=== PATIENT | female | born 1965 | race Hispanic/Latino ===

== ENCOUNTER 2016-12-12 06:30 | Emergency (ER) | payer MEDICARE ==
[2016-12-12] MEDS ORDERED: Ketorolac Tromethamine 30 MG/ML VIAL ONE (06:46)
[2016-12-12 07:08] LABS: #Eosinphils 0.1 thou/uL (0.0-0.7); #Lymphocytes 1.4 thou/uL (1.20-3.40); #Monocytes 0.9 thou/uL (0.11-0.59); #Neutrophils 8.6 thou/uL (1.40-6.50); %Basophils 0.4 % (0.0-1.0); %Eosinophils 0.7 % (0.0-10.0); %Lymphocytes 12.7 % (21.0-51.0); %Monocytes 8.3 % (0.0-10.0); Hematocrit 33.8 % (36.0-47.0); Mean Platelet Volume 9.3 fL (7.4-10.4); Red Blood Cell (RBC) Count 4.33 mill/uL (4.20-5.40)
[2016-12-12 07:28] LABS: ALT (SGPT) 12 U/L (8-55); AST (SGOT) 17 U/L (5-34); Alkaline Phosphatase 84 U/L (40-150); Anion Gap 12 mmol/L (10-20); BUN (Urea Nitrogen) 14 mg/dL (9.8-20.1); Bilirubin, Total 0.4 mg/dL (0.2-1.2); Calc. Creatinine Clearance 0 mL/min (70-130); Calcium 9.4 mg/dL (7.8-10.44); Carbon Dioxide 25 mmol/L (22-29); Chloride 104 mmol/L (98-107); Estimated GFR-MDRD 75; Globulin 3.7 g/dL (2.4-3.5); Protein, Total 7.8 g/dL (6.0-8.3)
--- NOTE | 2016-12-12 07:55 | RAD ---
CHEST 1 VIEW ABDOMEN 2 VIEWS: Date: 12/12/16 HISTORY: Chest and abdomen pain. Fever. FINDINGS: Cardiac silhouette and pulmonary vasculature are unremarkable. Mediastinum is midline. There is no c onfluent air space consolidation or evidence of free subdiaphragmatic gas. Gas and stool overlie the colon and rectum. There are no differential air fluid levels or evidence of free subdiaphragmatic g as. Metallic clips overlie the gallbladder fossa. IMPRESSION: 1. Nonspecific bowel gas pattern. 2. Status post cholecystectomy. POS: [facility]
[2016-12-12 08:30] LABS: Bilirubin Negative (Negative); Blood, Urine Negative (Negative); Glucose, Urine (Dipstick) Negative (Negative); Ketone, Urine Negative (Negative); Nitrite Negative (Negative); Protein, Urine (Dipstick) Negative (Neg-Trace); Urobilinogen 0.2 mg/dL (0.2-1.0)
== END 2016-12-12 09:06 | disposition home or self-care (01) ==
LOC: ERS 06:30
DX: M54.5 Low back pain (principal); D50.9 Iron deficiency anemia, unspecified; F17.210 Nicotine dependence, cigarettes, uncomplicated; I10 Essential (primary) hypertension; K21.9 Gastro-esophageal reflux disease without esophagitis
CPT/HCPCS: 74022; 80053; 81003; 85025; 96374; J1885

== ENCOUNTER 2017-11-02 06:09 | Inpatient (IN) | payer MEDICARE ==
[2017-11-02] MEDS ORDERED: Bupivacaine HCl 0.5%/Epinephrine 1:200,000/PF 30 ml Vial ONE (06:36)
[2017-11-02] MEDS ORDERED: Thrombin 5000 UNITS/5 ML VIAL ONE (06:36)
[2017-11-02] MEDS ORDERED: Fentanyl 100 MCG/2 ML VIAL ONE ×2 (06:38→09:15)
[2017-11-02] MEDS ORDERED: CEFAZOLIN/Water 2 GM/20 ML SYRINGE ONE (06:41)
[2017-11-02] MEDS ORDERED: Midazolam HCl 2 mg/2 ml Vial ONE (07:06)
--- NOTE | 2017-11-02 08:24 | OP ---
DATE OF PROCEDURE: 11/02/2017 SURGEON: Faustino Merrill M.D. TERMINAL OPERATIONS MANAGER: Anthony Pimentel PA-C. INDICATION: Pain. DIAGNOSIS: Lumbar radiculopathy. PROCEDURE: Left L4-5 hemilaminectomy, medial facetectomy, and resection of synovial cyst. ANESTHESIA: General. TECHNIQUE: The patient was brought into the operating room and placed under general anesthesia. She was flipped from a supine to a prone position on the operating room table. A linear incision was planned over the L4-L5 segment. After prepping and draping and after an appropriate operative pause, the incision was created. The soft tissues were swept away from midline. A self- retaining retractor was placed in the wound for optimal exposure. Confirmed the appropriate level with C-arm fluoroscopy, a high-speed cutting drill bit as well as 2, 3 and 4 mm Kerrisons used to perform a laminectomy along the inferior aspect of L4 and the superior aspect of L5. Laminectomy was extended laterally to encompass the medial aspect of the facet joint. A synovial cyst was identified as was granular faucet material. There was also a pocket of milky fluid which could be consistent with entrapped steroid as part of her injection. It is conceivable it also represents purulent material. As such, it was sent for microbiologic analysis. After decompressing the L4-5 lateral recess and resecting the wall of the synovial cyst the wound was irrigated. Hemostasis was maintained throughout. The wound was then closed in anatomic layers and a pressure dressing was applied. There were no known procedural complications. JESSICA
[2017-11-02] MEDS ORDERED: Bisacodyl 10 MG SUPP PR PRN (08:29)
[2017-11-02] MEDS ORDERED: Acetaminophen 325 MG TAB PO PRN (08:29)
[2017-11-02] MEDS ORDERED: Mag-Al 1200 mg/1200 mg/30 ML UDCUP PO PRN (08:29)
[2017-11-02] MEDS ORDERED: traMADol HCl 50 MG TAB PO PRN ×3 (08:29→15:02)
[2017-11-02] MEDS ORDERED: diphenhydrAMINE 50 MG/ML VIAL IVP PRN (08:29)
[2017-11-02] MEDS ORDERED: Ondansetron HCl/PF 4 MG/2 ML Vial IVP PRN ×2 (08:29→08:49)
[2017-11-02] MEDS ORDERED: Morphine Sulfate 2 MG/ML SYRINGE SLOW IVP PRN (08:49)
[2017-11-02] MEDS ORDERED: Promethazine HCl 25 MG/ML VIAL IM PRN (08:49)
[2017-11-02] MEDS ORDERED: Promethazine HCl 25 MG/ML VIAL SLOW IVP PRN (08:49)
[2017-11-02] MEDS ORDERED: Meperidine HCl/PF 25 MG/ML VIAL SLOW IVP PRN (08:49)
[2017-11-02] MEDS ORDERED: HYDROmorphone 2 MG/ML VIAL SLOW IVP PRN (08:49)
[2017-11-02 10:56] VITALS: BMI 34.0
[2017-11-02] MEDS: Sodium Chloride 0.9% 1,000 ML IV SCH ×2 (11:01→20:24)
[2017-11-02] MEDS: CEFAZOLIN/Water 2 GM/20 ML SYRINGE SLOW IVP SCH ×2 (14:52→22:44)
[2017-11-02] MEDS: traMADol HCl 50 MG TAB PO PRN ×2 (15:05→22:44)
--- NOTE | 2017-11-02 15:57 | EKG ---
Test Reason : PREOP Blood Pressure : / mmHG Vent. Rate : 077 BPM Atrial Rate : 077 BPM P-R Int : 166 ms QRS Dur : 092 ms QT Int : 402 ms P-R-T Axes : 046 052 032 degrees QTc Int : 454 ms Normal sinus rhythm Normal ECG Confirmed by NEO THOMSON ([id number]) on 11/02/2017 3:57:24 PM Referred By: Jorge GARVEY Confirmed By:NEO THOMSON
[2017-11-03] MEDS: Cyclobenzaprine 10 MG TAB PO PRN ×2 (00:31→07:43)
[2017-11-03] MEDS: traMADol HCl 50 MG TAB PO PRN (07:43)
[2017-11-03] MEDS ORDERED: Amlodipine 10 MG TAB PO SCH (09:00)
[2017-11-03 11:16] VITALS: TEMP 98.5
[2017-11-03 11:39] VITALS: BP 155/96
== END 2017-11-03 13:40 | disposition home or self-care (01) | DRG 520 ==
LOC: SURG A 06:09 → EDSTATUS 14:33 → SURG A 11-03 10:43
PROVIDERS: ADMIT Neurological Surgery; ATTEND Neurological Surgery
PROC: 01NB0ZZ Release Lumbar Nerve, Open Approach (ICD-10-PCS; principal; 2017-11-02)
PROC: 0SB00ZZ Excision of Lumbar Vertebral Joint, Open Approach (ICD-10-PCS; 2017-11-02)
DX: M54.16 Radiculopathy, lumbar region (principal); M71.30 Other bursal cyst, unspecified site; Z85.42 Personal history of malignant neoplasm of other parts of uterus; I10 Essential (primary) hypertension; K21.9 Gastro-esophageal reflux disease without esophagitis; Z79.899 Other long term (current) drug therapy; Z88.8 Allergy status to other drugs, medicaments and biological substances
CPT/HCPCS: 76001; 87070; 87205; 93005; 93010; J0131; J0670; J2250; J3010

== ENCOUNTER 2020-01-30 12:11 | Emergency (ER) | payer MEDICARE ==
[2020-01-30 18:00] LABS: #Lymphocytes 1.3 thou/uL (1.20-3.40); #Monocytes 0.5 thou/uL (0.11-0.59); #Neutrophils 6.3 thou/uL (1.40-6.50); %Basophils 0.3 % (0.0-1.0); %Eosinophils 0.2 % (0.0-10.0); %Lymphocytes 15.9 % (21.0-51.0); %Monocytes 6.1 % (0.0-10.0); %Neutrophils 77.5 % (42.0-75.0); Hemoglobin 10.2 g/dL (12.0-16.0); Mean Corpuscular HGB CONC 32.3 g/dL (32.0-36.0); Mean Corpuscular Hemoglobin 27.7 pg (27.0-31.0); Mean Corpuscular Volume 85.7 fL (78.0-98.0); Mean Platelet Volume 6.9 fL (7.4-10.4); Platelet Count 363 thou/uL (130-400); RBC Distribution Width 14.1 % (11.5-14.5); White Blood Cell (WBC) Count 8.1 thou/uL (4.8-10.8)
[2020-01-30] MEDS ORDERED: Ketorolac Tromethamine 30 MG/ML VIAL ONE (18:11)
[2020-01-30 18:23] LABS: ALT (SGPT) 28 U/L (8-55); AST (SGOT) 24 U/L (5-34); Albumin 3.6 g/dL (3.5-5.0); Alkaline Phosphatase 108 U/L (40-110); Anion Gap 16 mmol/L (10-20); BUN (Urea Nitrogen) 14 mg/dL (9.8-20.1); Bilirubin, Total 0.2 mg/dL (0.2-1.2); Calc. Creatinine Clearance 0 mL/min (70-130); Calcium 9.3 mg/dL (7.8-10.44); Carbon Dioxide 22 mmol/L (22-29); Chloride 103 mmol/L (98-107); Estimated GFR-MDRD 73; Globulin 3.3 g/dL (2.4-3.5); Glucose 88 mg/dL (70-105); Potassium 3.8 mmol/L (3.5-5.1); Protein, Total 6.9 g/dL (6.0-8.3); Sodium 137 mmol/L (136-145)
== END 2020-01-30 19:03 | disposition home or self-care (01) ==
LOC: ERS 12:11
DX: M54.5 Low back pain (principal); D64.9 Anemia, unspecified; K21.9 Gastro-esophageal reflux disease without esophagitis; D50.9 Iron deficiency anemia, unspecified; F17.210 Nicotine dependence, cigarettes, uncomplicated
CPT/HCPCS: 36415; 80053; 85025; 96372; 99283; J1885

== ENCOUNTER 2022-09-08 21:20 | Day surgery (SDC) | payer MEDICARE ==
[2022-09-08 22:06] LABS: #Basophils 0.1 thou/uL (0.0-0.2); #Eosinphils 0.1 thou/uL (0.0-0.7); #Monocytes 0.6 thou/uL (0.11-0.59); #Neutrophils 6.2 thou/uL (1.40-6.50); %Basophils 0.8 % (0.0-1.0); %Eosinophils 1.4 % (0.0-10.0); %Lymphocytes 18.6 % (21.0-51.0); %Monocytes 7.1 % (0.0-10.0); %Neutrophils 71.9 % (42.0-75.0); Hemoglobin 11.7 g/dL (12.0-16.0); Mean Corpuscular HGB CONC 29.2 g/dL (32.0-36.0); Mean Corpuscular Volume 75.2 fl (78.0-98.0); Mean Platelet Volume 9.3 fL (7.4-10.4); Platelet Count 488 10x3/uL (130-400); RBC Distribution Width 18.3 % (11.5-14.5); Red Blood Cell (RBC) Count 5.33 mill/uL (4.20-5.40); White Blood Cell (WBC) Count 8.6 10x3/uL (4.8-10.8)
[2022-09-08] MEDS ORDERED: fentaNYL 50 mcg/mL 1 mL Vial ONE (22:27)
[2022-09-08] MEDS ORDERED: Famotidine/PF 20 mg/2ml Vial ONE (22:27)
[2022-09-08 22:34] LABS: ALT (SGPT) 15 U/L (8-55); AST (SGOT) 19 U/L (5-34); Albumin 4.5 g/dL (3.5-5.0); Alkaline Phosphatase 103 U/L (40-110); Anion Gap 13 mmol/L (10-20); BUN (Urea Nitrogen) 19 mg/dL (9.8-20.1); Bilirubin, Total 0.2 mg/dL (0.2-1.2); Calc. Creatinine Clearance 0 mL/min (70-130); Carbon Dioxide 25 mmol/L (22-29); Chloride 100 mmol/L (98-107); Estimated GFR 48; Globulin 3.6 g/dL (2.4-3.5); Glucose 94 mg/dL (70-105); Potassium 4.3 mmol/L (3.5-5.1); Protein, Total 8.1 g/dL (6.0-8.3); Sodium 134 mmol/L (136-145)
[2022-09-08] MEDS ORDERED: Ondansetron PF 4 MG/2 ML Vial ONE (23:09)
[2022-09-08] MEDS ORDERED: Succinylcholine 200 MG/10 ml SYRINGE FS ONE (23:09)
[2022-09-08] MEDS ORDERED: Lidocaine 1% PF 5 ML VIAL ONE (23:09)
[2022-09-08] MEDS ORDERED: PROPOFOL 200 MG/20 ML VIAL ONE (23:09)
[2022-09-08] MEDS ORDERED: Ondansetron HCl/PF 4 MG/2 ML Vial IVP PRN (23:37)
[2022-09-08] MEDS ORDERED: Promethazine HCl 25 MG/ML VIAL IM PRN (23:37)
== END 2022-09-09 00:45 | disposition home or self-care (01) ==
LOC: ERS 21:20 → SDC/OP 23:13
PROVIDERS: ATTEND Internal Medicine
PROC: 0DC58ZZ Extirpation of Matter from Esophagus, Via Natural or Artificial Opening Endoscopic (ICD-10-PCS; principal; 2022-09-08)
DX: T18.128A Food in esophagus causing other injury, initial encounter (principal); K22.2 Esophageal obstruction; K31.819 Angiodysplasia of stomach and duodenum without bleeding; K44.9 Diaphragmatic hernia without obstruction or gangrene; K22.89 Other specified disease of esophagus; K21.9 Gastro-esophageal reflux disease without esophagitis; I50.9 Heart failure, unspecified; I11.0 Hypertensive heart disease with heart failure; E78.5 Hyperlipidemia, unspecified; Z90.49 Acquired absence of other specified parts of digestive tract; Z90.89 Acquired absence of other organs; Z87.891 Personal history of nicotine dependence; Z88.8 Allergy status to other drugs, medicaments and biological substances; Z88.5 Allergy status to narcotic agent; Z79.899 Other long term (current) drug therapy
CPT/HCPCS: 43247; 80053; 85025; 93005; J3010; S0028